=== PATIENT | female | born 1990 | race Two or more races ===

== ENCOUNTER 2021-11-23 00:21 | Emergency (ER) | payer MEDICAID ==
[~2021-11-23] VITALS: Ht 167.6 cm; Wt 71.8 kg
[2021-11-23 00:36] VITALS: BP 111/73
== END 2021-11-23 02:10 ==
LOC: ER 00:21
DX: G44.301 Post-traumatic headache, unspecified, intractable (principal); V89.2XXA Person injured in unspecified motor-vehicle accident, traffic, initial encounter; Y93.89 Activity, other specified; Y92.89 Other specified places as the place of occurrence of the external cause; Y99.8 Other external cause status
CPT/HCPCS: 70450